=== PATIENT | female | born 1980 | race Caucasian/White ===

== ENCOUNTER 2018-04-27 14:54 | Emergency (ER) | END 2018-04-27 19:19 | disposition home or self-care (01) ==

== ENCOUNTER 2018-07-04 18:28 | Emergency (ER) | payer SELFPAY ==
[~2018-07-04 18:28] MED LIST: HYDR-4011 PO; ONDA4TAB14 PO
== END 2018-07-04 21:15 | disposition left against medical advice (07) ==
LOC: E/R 18:28
DX: Z53.21 Procedure and treatment not carried out due to patient leaving prior to being seen by health care provider (principal)